=== PATIENT | female | born 1985 | race Caucasian/White ===

== ENCOUNTER → 2017-09-19 | Outpatient (CLI) | payer OTHER ==
[~2017-09-19] MED LIST: ACYC-114 PO; NAPR220C2 PO; NORG1TAB6 PO
[2017-09-19 13:54] LABS: INTERNATIONAL NORMALIZED RATIO 1.04 (0.93-1.1); PROTHROMBIN TIME 10.7 Seconds (9.6-11.5)
[2017-09-19 13:55] LABS: BASOPHILS # (AUTO) 0.06 x10^3/uL (0-0.1); BASOPHILS % (AUTO) 1 % (0-1); EOSINOPHILS # (AUTO) 0.09 x10^3/uL (0-0.4); EOSINOPHILS % (AUTO) 1 % (1-7); LYMPHOCYTES # (AUTO) 1.03 x10^3/uL (1-3.4); LYMPHOCYTES % (AUTO) 16 % (22-44); MD NO; MEAN CORPUSCULAR HEMOGLOBIN 31.1 pg (27.0-34.8); MEAN CORPUSCULAR HGB CONC 33.4 g/dL (32.4-35.8); MEAN PLATELET VOLUME 9.2 fL (7.4-10.4); MONOCYTES # (AUTO) 0.34 x10^3/uL (0.2-0.8); MONOCYTES % (AUTO) 5 % (2-9); NEUTROPHILS # (AUTO) 5.12 x10^3/uL (1.8-6.8); NEUTROPHILS % (AUTO) 77 % (42-75); PLATELET COUNT 170 x10^3/uL (130-400); RED BLOOD COUNT 4.24 x10^6/uL (3.82-5.3); RED CELL DISTRIBUTION WIDTH 13.3 % (9.6-15.2)
[2017-09-19 13:57] LABS: ALBUMIN 4.2 g/dL (3.4-5.0); ANION GAP 6 mmol/L (5-15); CALCIUM 8.7 mg/dL (8.5-10.1); CHLORIDE 109 mmol/L (98-107)
[2017-09-19 14:03] LABS: ALANINE AMINOTRANSFERASE 22 U/L (12-78); ALKALINE PHOSPHATASE 37 U/L (45-117); BILIRUBIN,TOTAL 0.7 mg/dL (0.2-1.0); CREATININE 0.76 mg/dL (0.55-1.02); TOTAL PROTEIN 6.7 g/dL (6.4-8.2)
== END | disposition home or self-care (01) ==
LOC: STAR 12:59
PROVIDERS: ATTEND Specialist
DX: N83.291 Other ovarian cyst, right side (principal); N83.292 Other ovarian cyst, left side
CPT/HCPCS: 36415; 80053; 84703; 85025; 85610; 85730

== ENCOUNTER 2017-09-23 08:27 | Day surgery (SDC) | payer OTHER ==
[2017-09-19 13:19] VITALS: BP 110/71
[~2017-09-23] VITALS: Ht 166.4 cm; Wt 60.9 kg
[~2017-09-23 08:27] MED LIST changes: +BUPIVACAINE/PF 0.25% ONE
[2017-09-23] MEDS ORDERED: LACTATED RINGERS 1,000 ML IV SCH (09:03)
[2017-09-23 09:05] VITALS: BP 110/71
[2017-09-23] MEDS ORDERED: OxyconTIN ER 10 MG TAB.ER PO ONE (09:30)
[2017-09-23] MEDS ORDERED: GABAPENTIN 300 MG CAPSULE PO ONE (09:30)
[2017-09-23] MEDS ORDERED: LIDOCAINE-MPF 1%, 2ML INFIL ONE (09:30)
[2017-09-23] MEDS ORDERED: SCOPOLAMINE PATCH, 1.5MG PATCH.TD72 TD ONE (09:30)
[2017-09-23] MEDS ORDERED: ACETAMINOPHEN 500 MG TABLET PO ONE (09:30)
[2017-09-23 11:02] LABS: HCG UR SG 1.019 (1.003-1.030)
[2017-09-23] MEDS ORDERED: MIDAZOLAM 1 MG/ML, 2ML ONE ×2 (12:54→16:14)
[2017-09-23] MEDS ORDERED: FENTANYL PF 250 MCG/5ML ONE (12:54)
[2017-09-23] MEDS ORDERED: PROPOFOL 10 MG/ML, 20ML ONE (14:43)
[2017-09-23] MEDS ORDERED: GLYCOPYRROLATE 0.2MG/1ML, 5ML ONE (14:43)
[2017-09-23] MEDS ORDERED: DEXAMETHASONE 4 MG/ML, 1ML ONE (14:43)
[2017-09-23] MEDS ORDERED: CEFAZOLIN 1,000 MG ONE (14:43)
[2017-09-23] MEDS ORDERED: NEOSTIGMINE 1 MG/ML, 10ML ONE (14:43)
[2017-09-23] MEDS ORDERED: SUCCINYLCHOLINE 20 MG/ML, 10ML ONE (14:43)
[2017-09-23] MEDS ORDERED: ROCURONIUM 10 MG/ML,10ML ONE (14:43)
[2017-09-23] MEDS ORDERED: ONDANSETRON 2MG/ML, 2ML ONE (14:43)
[2017-09-23] MEDS ORDERED: KETOROLAC 30 MG/1 ML IV PRN (15:30)
[2017-09-23] MEDS ORDERED: PROMETHAZINE 25 MG/ML, 1ML IV PRN (15:30)
[2017-09-23] MEDS ORDERED: HYDROmorphone 1 MG/ML, 1ML IV PRN (15:30)
[2017-09-23] MEDS ORDERED: OXYcodone 5 MG/5 ML ORAL.SOL UDC PO PRN (15:30)
[2017-09-23] MEDS ORDERED: ONDANSETRON 2MG/ML, 2ML IVPush PRN (15:30)
[2017-09-23] MEDS ORDERED: MEPERIDINE/PF 25MG/0.5ML IVPush PRN (15:30)
[2017-09-23] MEDS ORDERED: METOCLOPRAMIDE 5 MG/ML, 2ML IV PRN (15:30)
[2017-09-23] MEDS ORDERED: hydrALAzine 20 MG/ML, 1ML IV PRN (15:30)
[2017-09-23] MEDS ORDERED: LABETALOL 5MG/ML, 20ML IV PRN (15:30)
[2017-09-23] MEDS ORDERED: ALBUTEROL SULFATE 2.5 MG/3 ML NPPB PRN (15:30)
[2017-09-23] MEDS ORDERED: HEPARIN 1,000 UNITS/ML, 10ML ONE (15:39)
[2017-09-23] MEDS ORDERED: MEPERIDINE/PF 25MG/0.5ML ONE (15:53)
[2017-09-23] MEDS ORDERED: KETOROLAC 30 MG/1 ML ONE (15:53)
[2017-09-23] MEDS: MIDAZOLAM 1 MG/ML, 2ML IV PRN ×2 (16:03→16:26)
[2017-09-23] MEDS ORDERED: FENTANYL PF 100 MCG/2ML ONE ×2 (16:06→16:14)
[2017-09-23] MEDS ORDERED: OXYcodone 5 MG/5 ML ORAL.SOL UDC ONE (16:07)
[2017-09-23] MEDS: FENTANYL PF 100 MCG/2ML IV PRN ×3 (16:09→16:25)
[2017-09-23] MEDS ORDERED: LORazepam 2 MG/ML, 1ML IVPush PRN (16:30)
[2017-09-23] MEDS ORDERED: HYDROmorphone 2 MG/ML, 1ML ONE (16:47)
[2017-09-23] MEDS ORDERED: KETOROLAC 30 MG/1 ML IVPush ONE (17:30)
[2017-09-23] MEDS ORDERED: OXYcodone/APAP 7.5/325MG TABLET PO PRN (21:30)
== END 2017-09-23 22:00 | disposition home or self-care (01) ==
LOC: OUT 08:27 → 4NOR 20:25 → OUT 22:00
PROVIDERS: ATTEND Specialist
DX: N83.202 Unspecified ovarian cyst, left side (principal); N80.1 Endometriosis of ovary
CPT/HCPCS: 58662; 81025; 88112; 88305; J0330; J0690; J1100; J1170; J1644; J1885; J2175; J2250; J2405; J2704; J2710; J3010; J3490; J7120